=== PATIENT | female | born 1990 | race Hispanic/Latino ===

== ENCOUNTER 2017-09-20 12:05 | Emergency (ER) | payer BC, OTHER ==
[2017-09-20 12:15] VITALS: BP 128/91; PULSE 98; RESP 16; TEMP 98.9; O2SAT 98
[2017-09-20] MEDS ORDERED: Sodium Chloride 0.9% 1,000 ML IV STA (12:36)
--- NOTE | 2017-09-20 12:38 | ED PDOC ---
HPI: Female Pain Time Seen by Provider: 09/20/17 12:37 Chief Complaint (Nursing): Female Genitourinary Chief Complaint (Provider): right flank pain/urinary frequency History Per: Patient (27 y/o female here with right side flank pain that began on sunday. Notes urinary frequency and urgency since. Notes chills last night. No h/o abd surgeries.) Past Medical History Reviewed: Historical Data, Nursing Documentation, Vital Signs Vital Signs: Last Vital Signs Temp 98.9 F 09/20/17 12:12 Pulse 98 H 09/20/17 12:12 Resp 16 09/20/17 12:12 BP 128/91 H 09/20/17 12:12 Pulse Ox 98 09/20/17 12:12 - Family History Family History: States: No Known Family Hx - Home Medications Home Medications: Ambulatory Orders Medication Instructions Recorded Ciprofloxacin HCl [Cipro] 500 mg PO BID #14 tablet 09/20/17 Naproxen 375 mg PO Q8 PRN #21 tablet 09/20/17 Phenazopyridine HCl [Pyridium] 200 mg PO BID PRN #6 tablet 09/20/17 - Allergies Allergies/Adverse Reactions: Allergies Allergy/AdvReac Type Severity Reaction Status Date / Time No Known Allergies Allergy Verified 09/20/17 12:12 Review of Systems ROS Statement: Except As Marked, All Systems Reviewed And Found Negative Physical Exam - Reviewed Nursing Documentation Reviewed: Yes Vital Signs Reviewed: Yes - Physical Exam Appears: Positive for: Well, Non-toxic, No Acute Distress Head Exam: Positive for: ATRAUMATIC, NORMAL INSPECTION, NORMOCEPHALIC Skin: Positive for: Normal Color, Warm, DRY Eye Exam: Positive for: EOMI, Normal appearance, PERRL ENT: Positive for: Normal ENT Inspection Neck: Positive for: Normal, Painless ROM Cardiovascular/Chest: Positive for: Regular Rate, Rhythm Respiratory: Positive for: CNT, Normal Breath Sounds Gastrointestinal/Abdominal: Positive for: Normal Exam, Soft Back: Positive for: Normal Inspection, Other (right flank tenderness) Extremity: Positive for: Normal ROM Neurologic/Psych: Positive for: Alert, Oriented - Laboratory Results Result Diagrams: 09/20/17 12:41 09/20/17 12:41 Urine POC: Negative Urine dip results: Positive for: Leukocyte Esterase, Blood (trace). Negative for: Nitrate, Ketones, Glucose, Bilirubin - ECG O2 Sat by Pulse Oximetry: 98 - Progress ED Course And Treament: NS 1 LITER 500 ML PER HOUR PATIENT COMFORTABLE IN ED ROCEPHIN 1 GM IV FOR UTI IMPRESSION: The bilateral hemipelvic calcifications are probably bilateral hemipelvic phleboliths. Tracking the ureters down into the pelvis to the bladder is problematic. No proximal ureteral dilatation is seen to suggest any obstruction. Bilateral adnexal hypodensities probably relating to ovarian follicles under small ovarian physiological cyst in this 27-year-old female. Disposition - Clinical Impression Clinical Impression: Pyelonephritis - Patient ED Disposition Is Patient to be Admitted: No - Disposition Disposition: Routine/Home Disposition Time: 13:55 Condition: FAIR Prescriptions: Ciprofloxacin HCl [Cipro] 500 mg PO BID #14 tablet Naproxen 375 mg PO Q8 PRN #21 tablet PRN Reason: Urinary Discomt Phenazopyridine HCl [Pyridium] 200 mg PO BID PRN #6 tablet PRN Reason: Urinary Discomt Instructions: Kidney Infection (DC) Forms: [employer] (Tajik)
[2017-09-20 12:57] LABS: SQUAMOUS EPITHIAL 9 /hpf (0-5); URINE BACTERIA RARE (<OCC); URINE BILIRUBIN NEGATIVE (NEGATIVE); URINE BLOOD SMALL (NEGATIVE); URINE CLARITY CLOUDY (Clear); URINE COLOR YELLOW (YELLOW); URINE GLUCOSE (UA) NEG (Normal); URINE LEUKOCYTE ESTERASE MOD Leu/uL (Negative); URINE PROTEIN NEGATIVE (NEGATIVE); URINE UROBILINOGEN 0.2-1.0 mg/dL (0.2-1.0)
[2017-09-20 13:02] LABS: BASO % 0.2 % (0.0-2.0); EOS % 0.6 % (0.0-4.0); HEMOGLOBIN 13.5 g/dL (12.0-16.0); LYMPH # 1.7 K/uL (1.0-4.3); LYMPH % 21.3 % (20.0-40.0); MEAN CORPUSCULAR HEMOGLOBIN 28.4 pg (27.0-31.0); MEAN CORPUSCULAR HGB CONC 34.2 g/dL (33.0-37.0); MEAN PLATELET VOLUME 9.1 fl (7.2-11.7); MONO # 0.8 K/uL (0.0-0.8); MONO % 10.4 % (0.0-10.0); NEUT # 5.3 K/uL (1.8-7.0); NEUT % 67.5 % (50.0-75.0); RBC 4.77 Mil/uL (3.80-5.20); WHITE BLOOD COUNT 7.8 K/uL (4.8-10.8)
[2017-09-20] MEDS ORDERED: cefTRIAXone (Rocephin) 1 gm Inj IVPB ONE (13:05)
[2017-09-20 13:12] LABS: ALB/GLOB RATIO 1.1 (1.0-2.1); ALBUMIN 4.1 g/dL (3.5-5.0); ALT/SGPT 35 U/L (9-52); AST/SGOT 24 U/L (14-36); BLOOD UREA NITROGEN 10 mg/dl (7-17); CALCIUM 9.1 mg/dL (8.4-10.2); GFR AFRICAN-AMERICAN > 60; GFR NON-AFRICAN AMERICAN > 60; LIPASE 56 U/L (23-300)
[2017-09-20] MEDS ORDERED: cefTRIAXone (Rocephin) 1 gm Inj ONE (13:24)
--- NOTE | 2017-09-20 13:49 | CT ---
PROCEDURE: CT Abdomen and Pelvis without intravenous contrast HISTORY: r/o renal colic COMPARISON: None. TECHNIQUE: Technique. Contrast dose: None Radiation dose: Total exam DLP = 863 mGy-cm. This CT exam was performed using one or more of the following dose reduction techniques: Automated exposure control, adjustment of the mA and/or kV according to patient size, and/or use of iterative reconstruction technique. FINDINGS: LOWER THORAX: Unremarkable. LIVER: Unremarkable. No gross lesion or ductal dilatation. GALLBLADDER AND BILE DUCTS: Unremarkable. PANCREAS: Unremarkable. No gross lesion or ductal dilatation. SPLEEN: Unremarkable. ADRENALS: Unremarkable. No mass. KIDNEYS AND URETERS: Unremarkable. No hydronephrosis. No solid mass. The bilateral hemipelvic calcifications are probably bilateral hemipelvic phleboliths. Tracking the ureters down into the pelvis to the bladder is problematic. No proximal ureteral dilatation is seen to suggest any obstruction. VASCULATURE: Bilateral apparent hemipelvic phleboliths. No aortic aneurysm. BOWEL: Unremarkable. No obstruction. No gross mural thickening. APPENDIX: Unremarkable. Normal appendix. PERITONEUM: Unremarkable. No free fluid. No free air. LYMPH NODES: Unremarkable. No enlarged lymph nodes. BLADDER: Unremarkable. REPRODUCTIVE: Bilateral adnexal hypodensities probably relating to ovarian follicles under small ovarian physiological cyst in this 27-year-old female. BONES: No acute fracture. OTHER FINDINGS: Approximately 6.7 cm above the umbilicus there is minimal inflammatory changes in the subcutaneous tissues at minimal panniculitis of unknown chronicity is compatible with this. No fluid collections here are present. IMPRESSION: The bilateral hemipelvic calcifications are probably bilateral hemipelvic phleboliths. Tracking the ureters down into the pelvis to the bladder is problematic. No proximal ureteral dilatation is seen to suggest any obstruction. Bilateral adnexal hypodensities probably relating to ovarian follicles under small ovarian physiological cyst in this 27-year-old female.
== END 2017-09-20 14:40 | disposition home or self-care (01) ==
LOC: H.ER 12:05
DX: N12 Tubulo-interstitial nephritis, not specified as acute or chronic (principal)
CPT/HCPCS: 74176; 80053; 81003; 81025; 83690; 85025; 87086; 87181; 87491; 87591; 96365; 99283; J0696; J7030

== ENCOUNTER 2017-11-19 21:07 | Emergency (ER) | payer BC, OTHER ==
[2017-11-19 21:17] VITALS: BP 128/85; PULSE 99; RESP 15; TEMP 99.8; O2SAT 100
[2017-11-19] MEDS ORDERED: Naproxen 500 MG TAB PO STA ×2 (22:07→22:10)
[2017-11-19] MEDS ORDERED: Naproxen 500 MG TAB PO ONE (22:12)
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
== END 2017-11-19 22:18 | disposition home or self-care (01) ==
LOC: H.ER 21:07
DX: S09.90XA Unspecified injury of head, initial encounter (principal); S00.432A Contusion of left ear, initial encounter; Y04.0XXA Assault by unarmed brawl or fight, initial encounter; Y92.89 Other specified places as the place of occurrence of the external cause